=== PATIENT | female | born 1995 | race Hispanic/Latino ===

== ENCOUNTER 2019-11-05 22:20 | Emergency (ER) | payer SELFPAY ==
[2019-11-05] MEDS ORDERED: MORPHINE 4 MG/ML SYR ONE (22:54)
[2019-11-05] MEDS ORDERED: ONDANSETRON 4 MG/2 ML VIAL ONE (22:54)
[2019-11-05] MEDS ORDERED: NA CHLORIDE 0.9% 1,000 ML ONE (22:54)
[2019-11-05 23:18] LABS: Absolute Lymphocytes (CBC) 3.6 K/uL (0.7-4.9); Basophils % 0.3 % (0-1.3); Hematocrit 39.6 % (36.0-45.0); Lymphocytes % 31.1 % (15.3-44.8); MPV 8.6 fL (7.6-11.3); RBC Red Blood Cell Count 4.47 M/uL (3.86-4.86)
[2019-11-05 23:29] LABS: ALT/SGPT 49 U/L (12-78); AST/SGOT 26 U/L (15-37); Albumin 4.3 g/dL (3.4-5.0); Alkaline Phosphatase 74 U/L (45-117); BUN Blood Urea Nitrogen 12 mg/dL (7-18); Bicarbonate 24 mmol/L (21-32); Bilirubin Direct < 0.1 mg/dL (0-0.2); Bilirubin Total 0.2 mg/dL (0.2-1.0); Glucose Level 159 mg/dL (74-106); Lipase 74 U/L (73-393); Potassium 3.3 mmol/L (3.5-5.1); Protein, Total 8.4 g/dL (6.4-8.2); Sodium Level 138 mmol/L (136-145)
[2019-11-05 23:30] LABS: Calcium Oxalate Crystals- Ur FEW (NONE SEEN); Urine Culture Reflex Order REFLEXED
[2019-11-05 23:31] LABS: Urine Bacteria 20-50 /HPF (<20); Urine RBC <5 /HPF (NONE SEEN)
[2019-11-05] MEDS ORDERED: FENTANYL CITR 100 MCG/2 ML ONE (23:38)
[2019-11-05] MEDS ORDERED: KETOROLAC 30 MG/ML INJ ONE (23:48)
[2019-11-06 00:18] LABS: Urine Blood 1+ (NEG); Urine Glucose NEGATIVE (NEG); Urine Protein 2+ (NEG); Urine Specific Gravity >1.030 (1.005-1.030); Urine pH 5.5 (5.0-7.0)
--- NOTE | 2019-11-06 01:05 | ER ---
Nurse's Notes [facility] Name: Kori Ludwig Age: 24 yrs Sex: Female : 1995 Arrival Date: 11/05/2019 Time: 22:21 Bed 5 Private MD: Diagnosis: Other ovarian cysts;Calculus of kidney;Urinary tract infection, site not specified Presentation: 11/04 22:30 Chief complaint: Patient states: back pain started yesterday continuous, on and off rr5 stabbing pain. nausea and vomiting started 3 days ago. no trauma,no trouble peeing. 22:30 Coronavirus screen: Proceed with normal triage. Ebola Screen: Patient negative for rr5 fever greater than or equal to 101.5 degrees Fahrenheit, and additional compatible Ebola Virus Disease symptoms Patient denies exposure to infectious person. Patient denies travel to an Ebola-affected area in the 21 days before illness onset. Initial Sepsis Screen: Does the patient meet any 2 criteria? HR > 90 bpm. Yes Does the patient have a suspected source of infection? No. Patient's initial sepsis screen is negative. Risk Assessment: Do you want to hurt yourself or someone else? Patient reports no desire to harm self or others. Onset of symptoms was November 04, 2019. Care prior to arrival: Medication(s) given: Flomax, ciprofloxacin, naproxen. 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 - Social history:: Smoking status: unknown Patient/guardian denies using alcohol, street drugs. Screenin:38 Abuse screen: Denies threats or abuse. Denies injuries from another. Nutritional rr5 screening: No deficits noted. Tuberculosis screening: No symptoms or risk factors identified. Fall Risk IV access (20 points). Total Reynoso Fall Scale indicates No Risk (0-24 pts). Assessment: 22:30 General: Appears in no apparent distress. uncomfortable, ill, Behavior is calm, rr5 cooperative, appropriate for age. 22:30 Pain: Complains of pain in left mid back and right mid back Pain radiates to left lower rr5 quadrant Pain currently is 8 out of 10 on a pain scale. Quality of pain is described as stabbing, Pain began gradually, 1 day ago. Is intermittent. Neuro: Level of Consciousness is awake, alert, obeys commands, Oriented to person, place, time, situation. Cardiovascular: Capillary refill < 3 seconds Patient's skin is warm and dry. Respiratory: Airway is patent Respiratory effort is even, unlabored, Respiratory pattern is regular, symmetrical. GI: Abdomen is round non-distended, Reports lower abdominal pain, nausea, vomiting. : Urine is clear, Reports pain in bilateral flank(s), Denies burning with urination. EENT: No signs and/or symptoms were reported regarding the EENT system. Derm: Skin is intact, is healthy with good turgor, Skin temperature is warm. Musculoskeletal: Circulation, motion, and sensation intact. Capillary refill < 3 seconds. 23:30 Reassessment: Patient appears in no apparent distress at this time. Patient is alert, rr5 oriented x 3, equal unlabored respirations, skin warm/dry/pink. ED provider aware with order made and carried out. Patient states symptoms have not improved. 23:30 Pain: Pain currently is 10 out of 10 on a pain scale. rr5 11/05 00:30 Reassessment: Patient appears in no apparent distress at this time. Patient is alert, rr5 oriented x 3, equal unlabored respirations, skin warm/dry/pink. Patient states symptoms have improved. Pain: Pain currently is 6 out of 10 on a pain scale. 00:50 Reassessment: Patient appears in no apparent distress at this time. Patient is alert, rr5 oriented x 3, equal unlabored respirations, skin warm/dry/pink. ED provider reassess the patient, explained the results and ordered for discharge. 01:21 Reassessment: Patient appears in no apparent distress at this time. Patient is alert, rr5 oriented x 3, equal unlabored respirations, skin warm/dry/pink. discharge instruction given and explained without complaints made assisted going to her car and family member. Vital Signs: 11/04 22:30 BP 182 / 102; Pulse 111; Resp 20; Temp 99.1; Pulse Ox 100% ; Weight 104.33 kg; Height 5 rr5 ft. 3 in. (160.02 cm); Pain 8/10; 23:30 BP 141 / 74; Pulse 105; Resp 22; Pulse Ox 99% ; Pain 10/10; rr5 11/05 00:30 BP 157 / 78; Pulse 96; Resp 19; Pulse Ox 100% ; rr5 01:20 BP 141 / 70; Pulse 89; Resp 18; Pulse Ox 98% ; Pain 6/10; rr5 11/04 22:30 Body Mass Index 40.74 (104.33 kg, 160.02 cm) rr5 ED Course: 11/04 22:21 Patient arrived in ED. ag3 22:25 Albino Sagastume, RN is Primary Nurse. rr5 22:25 Carlos De Dios NP is PHCP. pm1 22:25 Coy Best MD is Attending Physician. pm1 22:30 Arm band placed on right wrist. rr5 22:35 Patient has correct armband on for positive identification. Bed in low position. Call rr5 light in reach. Pulse ox on. NIBP on. 22:36 Radiology exam delayed due to test not completed at this time. nj 22:37 Triage completed. rr5 22:45 Urine collected: clean catch specimen, clear. rr5 22:50 Inserted saline lock: 20 gauge in right antecubital area, using aseptic technique. ds4 Blood collected. 22:57 Basic Metabolic Panel Sent. ds4 22:57 CBC with Diff Sent. ds4 22:57 Creatinine for Radiology Sent. ds4 22:57 Hepatic Function Sent. ds4 22:57 Lipase Sent. ds4 23:41 CT Stone Protocol In Process Unspecified. EDMS Administered Medications: 22:50 Drug: NS 0.9% 1000 ml Route: IV; Rate: 1000 ml; Site: right antecubital; rr5 11/05 00:00 Follow up: Response: No adverse reaction; IV Status: Completed infusion; IV Intake: rr5 1000ml 11/04 22:51 Drug: Zofran (Ondansetron) 4 mg Route: IVP; Site: right antecubital; rr5 23:40 Follow up: Response: No adverse reaction rr5 22:53 Drug: morphine 4 mg {Note: rass 0.} Route: IVP; Site: right antecubital; rr5 23:35 Follow up: Response: Pain is unchanged, physician notified; RASS: Alert and Calm (0) rr5 23:39 Drug: fentaNYL (PF) 50 mcg {Note: rass 0.} Route: IVP; Site: right antecubital; rr5 11/05 00:40 Follow up: Response: No adverse reaction; Pain is decreased; RASS: Alert and Calm (0) rr5 11/04 23:46 Drug: TORadol - Ketorolac 15 mg Route: IVP; Site: right antecubital; rr5 11/05 00:40 Follow up: Response: No adverse reaction; Pain is decreased rr5 Intake: 00:00 IV: 1000ml; Total: 1000ml. rr5 Outcome: 01:04 Discharge ordered by pm1 01:23 Patient left the ED. rr5 Signatures: Dispatcher [employer] EDMS Dany Clark ds4 Carlos De Dios, ELISA [employer] pm1 Kevin Cunha Alice ag3 Albino Sagastume, RN RN rr5
--- NOTE | 2019-11-06 01:05 | EDPHYS ---
Physician Documentation [facility] Name: Kori Ludwig Age: 24 yrs Sex: Female : 1995 Arrival Date: 11/05/2019 Time: 22:21 Bed 5 Private MD: ED Physician Coy Best HPI: 11/04 22:36 This 24 yrs old Female presents to ER via Ambulatory with complaints of Back pm1 Pain. 22:36 The patient presents with pain that is acute, with no known mechanism of injury. The pm1 symptoms are located in the left mid back and right mid back. Onset: The symptoms/episode began/occurred yesterday, Nausea and vomiting 3 days ago. Associated signs and symptoms: Pertinent positives: LLQ abdominal pain. Similar to prior kidney stones, Pertinent negatives: chest pain, dysuria, fever. Modifying factors: The patient symptoms are alleviated by nothing, the patient symptoms are aggravated by nothing. Severity of symptoms: in the emergency department the symptoms are actually worse, a " 8" out of "10". The patient has experienced a previous episode, similar to prior kidney stones. 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 Prescribed Flomax, Cipro, and Naprosyn. 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 - Social history:: Smoking status: unknown Patient/guardian denies using alcohol, street drugs. ROS: 22:36 Constitutional: Negative for fever, chills, and weight loss, Cardiovascular: Negative pm1 for chest pain, palpitations, and edema, Respiratory: Negative for shortness of breath, cough, wheezing, and pleuritic chest pain. 22:36 : Negative for injury, bleeding, discharge, and swelling, MS/Extremity: Negative for injury and deformity, Skin: Negative for injury, rash, and discoloration, Neuro: Negative for headache, weakness, numbness, tingling, and seizure. 22:36 Abdomen/GI: Positive for abdominal pain, nausea and vomiting, of the left lower quadrant, Negative for diarrhea, constipation. 22:36 Back: Positive for of the left mid back and right mid back, pain. Exam: 22:36 Constitutional: This is a well developed, well nourished patient who is awake, alert, pm1 and in no acute distress. Head/Face: Normocephalic, atraumatic. Chest/axilla: Normal chest wall appearance and motion. Nontender with no deformity. No lesions are appreciated. 22:36 Skin: Warm, dry with normal turgor. Normal color with no rashes, no lesions, and no evidence of cellulitis. MS/ Extremity: Pulses equal, no cyanosis. Neurovascular intact. Full, normal range of motion. 22:36 Cardiovascular: Exam negative for acute changes, Rate: normal, Rhythm: regular, Pulses: no pulse deficits are appreciated. 22:36 Respiratory: Exam negative for acute changes, respiratory distress, shortness of breath. 22:36 Abdomen/GI: Inspection: abdomen appears normal, Palpation: soft, in all quadrants, mild abdominal tenderness, in the left lower quadrant, mass, is not appreciated, rebound tenderness, is not appreciated. 22:36 Back: pain, that is mild, of the left mid back and right mid back, normal spinal alignment noted. 22:36 Neuro: Exam negative for acute changes, Orientation: is normal, Mentation: is normal, Motor: is normal, moves all fours, Gait: is steady, at a normal pace, without difficulty. Vital Signs: 22:30 BP 182 / 102; Pulse 111; Resp 20; Temp 99.1; Pulse Ox 100% ; Weight 104.33 kg; Height 5 rr5 ft. 3 in. (160.02 cm); Pain 8/10; 23:30 BP 141 / 74; Pulse 105; Resp 22; Pulse Ox 99% ; Pain 10/10; rr5 11/05 00:30 BP 157 / 78; Pulse 96; Resp 19; Pulse Ox 100% ; rr5 01:20 BP 141 / 70; Pulse 89; Resp 18; Pulse Ox 98% ; Pain 6/10; rr5 11/04 22:30 Body Mass Index 40.74 (104.33 kg, 160.02 cm) rr5 MDM: 11/04 22:25 Patient medically screened. pm1 22:50 Data reviewed: vital signs. Data interpreted: Pulse oximetry: on room air is 100 %. pm1 Interpretation: normal. 11/05 01:02 Counseling: I had a detailed discussion with the patient and/or guardian regarding: the pm1 historical points, exam findings, and any diagnostic results supporting the discharge/admit diagnosis, lab results, radiology results, the need for outpatient follow up, an OB/Gyne specialist, a urologist, Follow up pelvic U/S to evaluate ovarian cyst, to return to the emergency department if symptoms worsen or persist or if there are any questions or concerns that arise at home. 01:05 ED course: Patient with diagnosed with UTI by her PCP and was prescribed Cipro pm1 yesterday. She has only taken one dose of antibiotics. Pending urine culture so no antibiotic prescribed by me. Patient also offered narcotic pain prescription and she refused. She wants to use NSAIDs prescribed by PCP. 11/04 22:34 Order name: Basic Metabolic Panel; Complete Time: 23:45 pm1 11/04 22:34 Order name: CBC with Diff; Complete Time: 23:29 pm1 11/04 22:34 Order name: Creatinine for Radiology; Complete Time: 23:29 pm1 11/04 22:34 Order name: Hepatic Function; Complete Time: 23:45 pm1 11/04 22:34 Order name: Lipase; Complete Time: 23:45 pm1 11/04 22:45 Order name: Urine Microscopic Only; Complete Time: 23:45 rr5 11/04 22:34 Order name: CT Stone Protocol pm1 11/04 23:32 Order name: Urine Culture EDWY 11/04 23:51 Order name: Urine Dipstick--Ancillary (enter results); Complete Time: 00:24 ar5 11/04 23:51 Order name: Urine --Ancillary (enter results); Complete Time: 00:24 ar5 11/04 22:34 Order name: IV Saline Lock; Complete Time: 22:56 pm1 11/04 22:34 Order name: Labs collected and sent; Complete Time: 22:56 pm1 11/04 22:34 Order name: Urine Dipstick-Ancillary (obtain specimen); Complete Time: 22:45 pm1 11/04 22:34 Order name: Urine Test (obtain specimen); Complete Time: 22:45 pm1 Administered Medications: 11/04 22:50 Drug: NS 0.9% 1000 ml Route: IV; Rate: 1000 ml; Site: right antecubital; rr5 11/05 00:00 Follow up: Response: No adverse reaction; IV Status: Completed infusion; IV Intake: rr5 1000ml 11/04 22:51 Drug: Zofran (Ondansetron) 4 mg Route: IVP; Site: right antecubital; rr5 23:40 Follow up: Response: No adverse reaction rr5 22:53 Drug: morphine 4 mg {Note: rass 0.} Route: IVP; Site: right antecubital; rr5 23:35 Follow up: Response: Pain is unchanged, physician notified; RASS: Alert and Calm (0) rr5 23:39 Drug: fentaNYL (PF) 50 mcg {Note: rass 0.} Route: IVP; Site: right antecubital; rr5 11/05 00:40 Follow up: Response: No adverse reaction; Pain is decreased; RASS: Alert and Calm (0) rr5 11/04 23:46 Drug: TORadol - Ketorolac 15 mg Route: IVP; Site: right antecubital; rr5 11/05 00:40 Follow up: Response: No adverse reaction; Pain is decreased rr5 Disposition: 02:17 Co-signature as Attending Physician, Coy Best MD. rn Disposition: 11/06/19 01:04 Discharged to Home. Impression: Other ovarian cysts, Calculus of kidney, Urinary tract infection, site not specified. - Condition is Stable. - Discharge Instructions: Kidney Stones, Ovarian Cyst, Urinary Tract Infection, Adult. - Medication Reconciliation Form, Thank You Letter, Antibiotic Education, Prescription Opioid Use form. - Follow up: Emergency Department; When: As needed; Reason: Worsening of condition. Follow up: Private Physician; When: 2 - 3 days; Reason: Recheck today's complaints, Continuance of care, Re-evaluation by your physician. - Problem is new. - Symptoms have improved. - Notes: Continue taking the antibiotics and painmedications prescribed to youby your PCP. A urine culture is pending and the hospital will contact you if a change in antibiotics is required Signatures: Dispatcher [employer] EDMS Coy Best MD MD rn Marinas, Patrick, ELISA DISHWASHER PREPARER pm1 Albino Sagastume, RN RN rr5 Corrections: (The following items were deleted from the chart) 01:07 01:04 11/06/2019 01:04 Discharged to Home. Impression: Other ovarian cysts; Calculus of pm1 kidney. Condition is Stable. Forms are Medication Reconciliation Form, Thank You Letter, Antibiotic Education, Prescription Opioid Use. Follow up: Emergency Department; When: As needed; Reason: Worsening of condition. Follow up: Private Physician; When: 2 - 3 days; Reason: Recheck today's complaints, Continuance of care, Re-evaluation by your physician. Problem is new. Symptoms have improved. pm1 01:23 01:07 11/06/2019 01:04 Discharged to Home. Impression: Other ovarian cysts; Calculus of rr5 kidney; Urinary tract infection, site not specified. Condition is Stable. Discharge Instructions: Kidney Stones, Ovarian Cyst. Forms are Medication Reconciliation Form, Thank You Letter, Antibiotic Education, Prescription Opioid Use. Follow up: Emergency Department; When: As needed; Reason: Worsening of condition. Follow up: Private Physician; When: 2 - 3 days; Reason: Recheck today's complaints, Continuance of care, Re-evaluation by your physician. Problem is new. Symptoms have improved. pm1
[2019-11-06 01:38] VITALS: TEMP 99.1
[2019-11-06 01:48] VITALS: BP 141/70; O2SAT 98
--- NOTE | 2019-11-06 11:51 | RAD REPORT ---
EXAM DESCRIPTION: Stone Protocol CLINICAL HISTORY: 24 years Female FLANK PAIN COMPARISON: None. TECHNIQUE: Contiguous axial images obtained through the abdomen and pelvis without IV contrast. Refo rmatted images obtained. This exam was performed according to our department optimization program which includes automated exp osure control, adjustment of the mA and/or kv according to patient size and/or use of iterative recon struction technique. FINDINGS: The lung bases are clear. The liver is enlarged measuring 26 cm in length. There is mild fatty replacement in the liver. The spleen and pancreas appear unremarkable. No adrenal masses. There are small bilateral nonobstructing renal calculi. No hydronephrosis or definite ureteral calcul i. The gallbladder is visualized. No aneurysmal dilatation of the aorta. No bowel obstruction. The appendix appears unremarkable. No significant free pelvic fluid. There is a probable 3.3 cm left ovarian cyst. Posterior disc/disc osteophyte complexes at L4-5 and L5-S1. IMPRESSION: The liver is markedly enlarged. There are bilateral nonobstructing renal calculi. No hydronephrosis or ureteral calculi. There is a probable 3.3 cm indeterminate ovarian cyst. Recommend prompt follow-up with pelvic US. Reference: J Am Victorina Radiol 2013;10:[id number] Electronically signed by: Elan Beck MD 11/06/2019 12:14 AM CDT Due to temporary technical issues with the PACS/Fluency reporting system, reports are being signed by the in house radiologist as a courtesy to ensure prompt reporting. The interpreting radiologist is f ully responsible for the content of the report.
== END 2019-11-06 01:23 | disposition home or self-care (01) ==
LOC: ER 22:20
DX: N83.299 Other ovarian cyst, unspecified side (principal); N39.0 Urinary tract infection, site not specified; N20.0 Calculus of kidney; Z87.442 Personal history of urinary calculi; Z87.898 Personal history of other specified conditions
CPT/HCPCS: 36415; 74176; 76377; 80048; 80076; 81003; 81015; 81025; 83690; 85025; 87086; 87088; 96361; 96374; 96375; 99284; J2405; J3010; J7030

== ENCOUNTER 2021-02-22 06:30 | Emergency (ER) | payer SELFPAY ==
[2021-02-22 08:10] LABS: Absolute Lymphocytes (CBC) 2.1 K/uL (0.7-4.9); Basophils % 0.4 % (0-1.3); Hematocrit 36.5 % (36.0-45.0); Lymphocytes % 22.3 % (15.3-44.8); MPV 7.9 fL (7.6-11.3); RBC Red Blood Cell Count 4.19 M/uL (3.86-4.86)
[2021-02-22] MEDS ORDERED: ONDANSETRON 4 MG/2 ML VIAL ONE (08:20)
[2021-02-22] MEDS ORDERED: MORPHINE 4 MG/ML SYR ONE (08:20)
--- NOTE | 2021-02-22 08:24 | RAD REPORT ---
EXAM DESCRIPTION: CT - Stone Protocol - 02/22/2021 7:46 am CLINICAL HISTORY: Flank pain. right sided abd pain, hx of stones COMPARISON: Stone Protocol dated 11/05/2019 TECHNIQUE: Axial images were obtained without oral or IV contrast. Lack of contrast limits solid org an and vascular assessment. The [id number] spans the entirety of the system partially obscuring uppermost abdomen and lung bases. Coronal reformatted images were obtained and reviewed. All CT scans are performed using dose optimization technique as appropriate and may include automated exposure control or mA/KV adjustment according to patient size. FINDINGS: The lower lung catherine are clear. Imaged portions of the liver and spleen show no suspicious findings on non-contrast imaging. The panc reas and adrenal glands are normal. No pathologic lymphadenopathy in the abdomen or pelvis. 3 mm stone is present proximal right ureter with mild right hydronephrosis. Additional small caliceal stones in both kidneys noted. No bowel obstruction, free air, free fluid or abscess. Normal appendix noted. No significant bony abnormality. IMPRESSION: 3 mm stone proximal right ureter resulting in mild right hydronephrosis.
[2021-02-22 08:31] LABS: ALT/SGPT 28 U/L (12-78); AST/SGOT 15 U/L (15-37); Albumin 3.6 g/dL (3.4-5.0); Alkaline Phosphatase 73 U/L (45-117); BUN Blood Urea Nitrogen 6 mg/dL (7-18); Bicarbonate 24 mmol/L (21-32); Bilirubin Direct < 0.1 mg/dL (0-0.2); Bilirubin Total 0.2 mg/dL (0.2-1.0); Glucose Level 215 mg/dL (74-106); Potassium 3.8 mmol/L (3.5-5.1); Protein, Total 7.3 g/dL (6.4-8.2); Sodium Level 137 mmol/L (136-145)
[2021-02-22] MEDS ORDERED: KETOROLAC 30 MG/ML INJ ONE (09:16)
[2021-02-22] MEDS ORDERED: TAMSULOSIN 0.4 MG SR CAP ONE (09:16)
[2021-02-22] MEDS ORDERED: MAGNESIUM SULFATE 1 gm IVPB 1 GM/100 ML BAG IV ONE (09:26)
--- NOTE | 2021-02-22 10:13 | ER ---
Nurse's Notes [facility] Name: Kori Ludwig Age: 25 yrs Sex: Female : 1995 Arrival Date: 02/22/2021 Time: 06:32 Bed 15 Private MD: Diagnosis: Calculus of ureter-Mild hydronephrosis Presentation: 02/22 07:09 Chief complaint: Patient states: RLQ abd pain with N/V since 6 am. Currently being ll1 treated for UTI, still has some dysuria. No fever. Coronavirus screen: Client denies travel out of the [place] in the last 14 days. At this time, the client does not indicate any symptoms associated with coronavirus-19. Ebola Screen: Patient denies travel to an Ebola-affected area in the 21 days before illness onset. Initial Sepsis Screen: Does the patient meet any 2 criteria? HR > 90 bpm. No. Patient's initial sepsis screen is negative. Does the patient have a suspected source of infection? Yes: Acute abdominal pain. Risk Assessment: Do you want to hurt yourself or someone else? Patient reports no desire to harm self or others. Onset of symptoms was February 22, 2021. 07:09 Method Of Arrival: Ambulatory ll1 07:09 Acuity: [place] 3 ll1 Historical: - Allergies: 07:11 No Known Allergies; ll1 - PMHx: 07:11 Kidney stones; ll1 - PSHx: 07:11 None; ll1 - Immunization history:: Client reports having NOT received the Covid vaccine. Flu vaccine status is unknown. - Social history:: Smoking status: Patient denies any tobacco usage or history of. - Family history:: not pertinent. - Hospitalizations: : No recent hospitalization is reported. Screenin:36 Abuse screen: Denies threats or abuse. Nutritional screening: No deficits noted. jd3 Tuberculosis screening: No symptoms or risk factors identified. Fall Risk Ambulatory Aid- None/Bed Rest/Nurse Assist (0 pts). Gait- Normal/Bed Rest/Wheelchair (0 pts) Mental Status- Oriented to own ability (0 pts). Total Reynoso Fall Scale indicates No Risk (0-24 pts). Assessment: 08:33 General: Appears in no apparent distress. comfortable, Behavior is calm, cooperative, jd3 appropriate for age. Pain: Complains of pain in right lower quadrant Quality of pain is described as sharp, tender. Neuro: Level of Consciousness is awake, alert, obeys commands, Oriented to person, place, time, situation. Cardiovascular: Denies chest pain, Capillary refill < 3 seconds Patient's skin is warm and dry. Respiratory: Airway is patent Respiratory effort is even, unlabored, Respiratory pattern is regular, symmetrical, Denies cough, shortness of breath. GI: Abdomen is round non-distended, Abd is soft and non tender X 4 quads. Reports lower abdominal pain, nausea, vomiting. : No signs and/or symptoms were reported regarding the genitourinary system. EENT: No signs and/or symptoms were reported regarding the EENT system. Derm: Skin is intact, Skin is dry, Skin is normal, Skin temperature is warm. Musculoskeletal: Circulation, motion, and sensation intact. Range of motion: intact in all extremities. 09:49 Reassessment: Patient appears in no apparent distress at this time. No changes from jd3 previously documented assessment. Patient and/or family updated on plan of care and expected duration. Pain level reassessed. Patient is alert, oriented x 3, equal unlabored respirations, skin warm/dry/pink. 10:24 Reassessment: Patient appears in no apparent distress at this time. Patient and/or jd3 family updated on plan of care and expected duration. Pain level reassessed. Patient is alert, oriented x 3, equal unlabored respirations, skin warm/dry/pink. Patient states feeling better. Vital Signs: 07:09 BP 157 / 94; Pulse 94; Resp 17; Temp 98.6; Pulse Ox 97% ; Weight 102.51 kg; Height 5 ll1 ft. 3 in. (160.02 cm); Pain 8/10; 08:35 BP 139 / 59; Pulse 98; Resp 18 S; Pulse Ox 99% on R/A; jd3 09:49 Pulse 95; Resp 17 S; Pulse Ox 99% on R/A; jd3 07:09 Body Mass Index 40.03 (102.51 kg, 160.02 cm) ll1 ED Course: 06:32 Patient arrived in ED. wm 06:49 [facility]C [facility] kb 06:49 Shan Oliveira MD is Attending Physician. kb 07:06 Attending Physician role handed off by Shan Oliveira MD rn 07:06 Coy Best MD is Attending Physician. rn 07:11 Triage completed. ll1 07:11 Arm band placed on Patient placed in an exam room, on a stretcher. ll1 07:46 CT Stone Protocol In Process Unspecified. EDMS 08:03 Babak Jean Baptiste RN is Primary Nurse. jd3 08:03 Inserted saline lock: 20 gauge in right antecubital area, using aseptic technique. jd3 Blood collected. 08:36 Patient has correct armband on for positive identification. Bed in low position. Call jd3 light in reach. Side rails up X 1. Adult w/ patient. environmental monitoring specialist on. Pulse ox on. NIBP on. 10:24 No provider procedures requiring assistance completed. IV discontinued, intact, jd3 bleeding controlled, No redness/swelling at site. Pressure dressing applied. Administered Medications: 08:03 Drug: morphine 4 mg Route: IVP; Site: right antecubital; jd3 09:00 Follow up: Response: No adverse reaction; RASS: Alert and Calm (0) jd3 08:03 Drug: Zofran (Ondansetron) 4 mg Route: IVP; Site: right antecubital; jd3 09:00 Follow up: Response: No adverse reaction jd3 09:02 Drug: Ketorolac 15 mg Route: IVP; Site: right antecubital; jd3 10:00 Follow up: Response: No adverse reaction jd3 09:02 Drug: Flomax (tamsulosin) 0.4 mg Route: PO; jd3 10:00 Follow up: Response: No adverse reaction jd3 09:02 Drug: Magnesium Sulfate 1 grams Route: IVPB; Infused Over: 1 hrs; Site: right jd3 antecubital; 10:00 Follow up: Response: No adverse reaction; IV Status: Completed infusion jd3 Outcome: 10:13 Discharge ordered by . rn 10:24 Discharged to home ambulatory, with family. jd3 10:24 Condition: stable 10:24 Discharge instructions given to patient, Instructed on discharge instructions, follow up and referral plans. medication usage, Demonstrated understanding of instructions, follow-up care, medications, Prescriptions given X 2. 10:25 Patient left the ED. jd3 Signatures: Dispatcher [employer] EDAK Edith Chauhan, PAULA-C INSPECTOR BICYCLE-Ckb Coy Best MD MD rn Ita, Babak, RN RN jd3 Delores Mckinney RN RN ll1 Radha Marc
--- NOTE | 2021-02-22 10:14 | EDPHYS ---
Physician Documentation [facility] Name: Kori Ludwig Age: 25 yrs Sex: Female : 1995 Arrival Date: 02/22/2021 Time: 06:32 Bed 15 Private MD: ED Physician Coy Best HPI: 02/22 07:28 This 25 yrs old Female presents to ER via Ambulatory with complaints of rn Abdominal Pain - RIGHT SIDE. 07:28 The patient presents with abdominal pain right lower quadrant. Onset: The rn symptoms/episode began/occurred this morning. The symptoms do not radiate. Associated signs and symptoms: Pertinent positives: dysuria, nausea, Pertinent negatives: fever, shortness of breath, vaginal discharge, vomiting, vomiting blood. The symptoms are described as sharp. Modifying factors: The symptoms are alleviated by nothing, the symptoms are aggravated by movement, touching the area. Severity of pain: At its worst the pain was moderate in the emergency department the pain has improved. The patient has experienced similar episodes in the past. The patient has not recently seen a physician. Patient reports right-sided abdominal pain that began at around 6 AM this morning. [place] fine when going to bed last night. No fever, no chills, no chest pain. Feels slightly different from previous kidney stones. Pain is constant and worse with movement and touching area. On antibiotics for UTI currently.. Historical: - Allergies: 07:11 No Known Allergies; ll1 - PMHx: 07:11 Kidney stones; ll1 - PSHx: 07:11 None; ll1 - Immunization history:: Client reports having NOT received the Covid vaccine. Flu vaccine status is unknown. - Social history:: Smoking status: Patient denies any tobacco usage or history of. - Family history:: not pertinent. - Hospitalizations: : No recent hospitalization is reported. ROS: 07:28 Constitutional: Negative for fever, chills, and weight loss, Eyes: Negative for injury, rn pain, redness, and discharge, ENT: Negative for injury, pain, and discharge, Neck: Negative for injury, pain, and swelling, Cardiovascular: Negative for chest pain, palpitations, and edema, Respiratory: Negative for shortness of breath, cough, wheezing, and pleuritic chest pain, Abdomen/GI: Positive for right-sided abdominal pain, and nausea. Back: Negative for injury and pain, : Positive for dysuria negative for bleeding MS/Extremity: Negative for injury and deformity, Skin: Negative for injury, rash, and discoloration, Neuro: Negative for headache, weakness, numbness, tingling, and seizure. 07:28 All other systems are negative. Exam: 07:28 Constitutional: Overweight female no acute distress. Head/Face: Normocephalic, rn atraumatic. Eyes: Periorbital areas with no swelling, redness, or edema. Cardiovascular: Regular rate and rhythm. No pulse deficits. Respiratory: No increased work of breathing, no retractions or nasal flaring. Abdomen/GI: Soft, mild right lower and right upper abdominal tenderness, no peritoneal signs, no distention. Back: No spinal tenderness. Skin: Warm, dry with normal turgor. Normal color with no rashes, no lesions, and no evidence of cellulitis. MS/ Extremity: Pulses equal, no cyanosis. Neurovascular intact. Full, normal range of motion. Equal circumference. Neuro: Awake and alert, GCS 15 Vital Signs: 07:09 BP 157 / 94; Pulse 94; Resp 17; Temp 98.6; Pulse Ox 97% ; Weight 102.51 kg; Height 5 ll1 ft. 3 in. (160.02 cm); Pain 8/10; 08:35 BP 139 / 59; Pulse 98; Resp 18 S; Pulse Ox 99% on R/A; jd3 09:49 Pulse 95; Resp 17 S; Pulse Ox 99% on R/A; jd3 07:09 Body Mass Index 40.03 (102.51 kg, 160.02 cm) ll1 MDM: 07:05 Patient medically screened. kb 10:11 Differential diagnosis: appendicitis, diverticulitis, non-specific abd pain, rn Ureterolithiasis, urinary tract infection. Data reviewed: vital signs, nurses notes, lab test result(s), radiologic studies, CT scan, and as a result, I will discharge patient. Counseling: I had a detailed discussion with the patient and/or guardian regarding: the historical points, exam findings, and any diagnostic results supporting the discharge/admit diagnosis, lab results, radiology results, the need for outpatient follow up, to return to the emergency department if symptoms worsen or persist or if there are any questions or concerns that arise at home. Response to treatment: the patient's symptoms have markedly improved after treatment, and as a result, I will discharge patient. Special discussion: I discussed with the patient/guardian in detail that at this point there is no indication for admission to the hospital. It is understood, however, that if the symptoms persist or worsen the patient needs to return immediately for re-evaluation. ED course: Patient markedly improved, small 3 mm stone, high likelihood of passing without intervention, will DC home with pain medication and as needed Zofran. Patient states has Flomax at home.. 02/22 07:20 Order name: CT Stone Protocol; Complete Time: 08:33 rn 02/22 07:20 Order name: CBC with Diff; Complete Time: : rn 02/22 07:20 Order name: Basic Metabolic Panel; Complete Time: : rn 02/22 07:20 Order name: LFT's; Complete Time: 08: rn 02/22 07:08 Order name: Urine Test (obtain specimen); Complete Time: 08:03 rn 02/22 07:20 Order name: IV Start; Complete Time: 08:03 rn Administered Medications: 08:03 Drug: morphine 4 mg Route: IVP; Site: right antecubital; jd3 09:00 Follow up: Response: No adverse reaction; RASS: Alert and Calm (0) jd3 08:03 Drug: Zofran (Ondansetron) 4 mg Route: IVP; Site: right antecubital; jd3 09:00 Follow up: Response: No adverse reaction jd3 09:02 Drug: Ketorolac 15 mg Route: IVP; Site: right antecubital; jd3 10:00 Follow up: Response: No adverse reaction jd3 09:02 Drug: Flomax (tamsulosin) 0.4 mg Route: PO; jd3 10:00 Follow up: Response: No adverse reaction jd3 09:02 Drug: Magnesium Sulfate 1 grams Route: IVPB; Infused Over: 1 hrs; Site: right jd3 antecubital; 10:00 Follow up: Response: No adverse reaction; IV Status: Completed infusion jd3 Disposition Summary: 02/22/21 10:13 Discharge Ordered Location: Home rn Problem: new rn Symptoms: have improved rn Condition: Stable rn Diagnosis - Calculus of ureter - Mild hydronephrosis rn Followup: rn - With: Private Physician - When: As needed - Reason: Recheck today's complaints, Re-evaluation by your physician Discharge Instructions: - Discharge Summary Sheet rn - Kidney Stones rn - Renal Colic rn - Dietary Guidelines to Help Prevent Kidney Stones rn Forms: - Medication Reconciliation Form rn - Thank You Letter rn - Antibiotic rn icu - Prescription Opioid Use rn Prescriptions: - ondansetron 4 mg Oral tablet,disintegrating - take 1 tablet by ORAL route every 8 hours As needed; 15 tablet; Refills: 0, rn Product Selection Permitted - Ibuprofen 800 mg Oral Tablet - take 1 tablet by ORAL route every 12 hours As needed take with food; 20 tablet; rn Refills: 0, Product Selection Permitted Signatures: Dispatcher [employer] EDEdith Gardner, YUVALC EXTERMINATION SUPERVISOR-Coy Treviño MD MD rn Davies, Jonathon, RN RN jd3 Delores Mckinney RN RN ll1
[2021-02-22 10:33] VITALS: TEMP 98.6
[2021-02-22 10:34] VITALS: BP 139/59; O2SAT 99
== END 2021-02-22 10:25 | disposition home or self-care (01) ==
LOC: ER 06:30
DX: N13.2 Hydronephrosis with renal and ureteral calculous obstruction (principal); Z87.442 Personal history of urinary calculi
CPT/HCPCS: 36415; 74176; 76377; 80048; 80076; 85025; 96365; 96375; 99284; J2405; J3475

== ENCOUNTER 2023-11-21 02:18 | Emergency (ER) | payer OTHER, SELFPAY ==
--- OUTSIDE RECORDS SUMMARY | 2023-11-21 02:20 | XMS REPORT | Continuity of Care Document ---
Author Name Unknown Address [address] [facility] [address] [place] [address] [facility] thconnect Address [address] [facility] [place] [address] Care Team Providers Care Advisory Application Developer Name Role Phone Unavailable Unavailable Unavailable Encounters Start Date/Time End Date/Time Encounter Type Admission Type Attending [facility] Care Facility Care Department Encounter ID Source 2023-05-27 08:46:32 2023-05-27 08:46:[address] [facility] [id number] [place] Crews 2023-03-21 14:05:48 2023-03-21 14:05:48 Outpatient [facility] [id number] [place] Crews 2023-02-09 07:22:54 2023-02-09 07:22:54 Outpatient [facility] [id number] [place] Crews 2023-02-01 11:36:27 2023-02-01 11:36:[address] [facility] SFA [id number] [place] Crews 2022-11-13 08:49:51 2022-11-13 08:49:[address] [facility] SFA [id number] [place] Crews 2022-11-11 08:17:45 2022-11-11 08:17:45 Outpatient [facility] [id number] [place]on Crews Results Test Description Test Time Test Comments Results Result Co mments Source JOVANNA JETER [id number] 13:16:06* Test Item Value Reference Range Interpretation Comme nts JOVANNA JETER IgG (test code = 30932) 45.3 AU/ML SEE BELOW INTERPRETATION U NITS RANGE ----- ----- NEGATIVE AU/ML <13.5 EQUIVOCAL AU/ML 13.5-16.4 NOTE: CONSIDER RETESTING IN A CLINICALLY SUITABLE PERIOD OF TIME, NO SOONER THAN 1-2 WEEKS. POSITIVE AU/ML >=16.5 VARICELLA ZOSTER [id number] 13:16:06* Test Item Value Reference Range Interpretation Comme [facility] VARICELLA ZOSTER IgG (test code = 85582) 92 INDEX SEE BELOW L INTERPRETATI ON VZV IgG NEGATIVE . . . . . . . . . . . . INDEX <135 EQUIVOCAL. . . . . . . . . . . . INDEX 135-164 NOTE: CONSIDER RETESTING IN A CLINICALLY SUITABLE PERIOD OF TIME, NO SOONER THAN 1-2 WEEKS. POSITIVE . . . . . . . . . . . . INDEX >=165 HEPATITIS B SURFACE [id number] 04:26:12* Test Item Value Reference Range Interpretation Comme [facility] HEPATITIS B SURFACE AB (test code = 2737) NON-REACTIVE NON-REACTIVE HEPATITIS A TOTAL AB REFLEX TO [id number] 04:26:12* Test Item Value Reference Range Interpretation Comme [facility] HEPATITIS A TOTAL AB (test c ode = 2725) REACTIVE NON-REACTIVE A HEPATITIS A [id number] 04:26:12* Test Item Value Reference Range Interpretation Comme [facility] HEPATITIS A IgM (test code = 2728) NON-REACTIVE NON-REACTIVE [facility] has i mportant pathology staff changes effective 09/22/2022. New pathology staff will provide uninterrupted, excellent patient care and clinical consultation. See URL: [email or web address]. UNLESS OTHERWISE INDICATED, ALL TESTING PERFORMED AT [facility] [address] [place] [id number] PARKING METER COLLECTOR: JOYCE THOMAS M.D. CLIA NUMBER [id number] [facility] [place]. [id number] RUBELLA ANTIBODY [id number] 04:26:12* Test Item Value Reference Range Interpretation Comme [facility] RUBELLA ANTIBODY SCREEN (test code = 4600) 320 IU/ML SEE BELOW RUBELLA IgG INTERP (test code = 79790) REACTIVE REACTIVE INTERPRETATI ON UNITS RANGE NON-REACTIVE/NON-IMMUNE IU/ML <10 REACTIVE/IMMUNE IU/ML >=10
[2023-11-21] MEDS ORDERED: METOCLOPRAMIDE 10 MG/2mL INJ ONE (03:38)
[2023-11-21] MEDS ORDERED: DICYCLOMINE HCL 20 MG/2 ML AMP IM ONE (03:38)
[2023-11-21] MEDS ORDERED: KETOROLAC 30 MG/ML INJ ONE (03:38)
[2023-11-21] MEDS ORDERED: ONDANSETRON 4 MG/2 ML VIAL ONE (03:38)
[2023-11-21] MEDS ORDERED: NA CHLORIDE 0.9% 1,000 ML ONE (03:39)
[2023-11-21] MEDS ORDERED: MORPHINE 4 MG/ML SYR ONE (03:39)
[2023-11-21 04:30] LABS: Absolute Eosinophils 0.1 K/uL (0-0.5); Absolute Lymphocytes (CBC) 2.9 K/uL (0.7-4.9); Absolute Monocytes 0.6 K/uL (0.1-1.3); Absolute Neutrophil 5.2 K/uL (1.8-8.0); Basophils % 0.2 % (0-1.3); Eosinophils % 1.6 % (0-4.4); Hematocrit 37.8 % (36.0-45.0); Hemoglobin 12.7 g/dL (12.0-15.0); Lymphocytes % 32.6 % (15.3-44.8); MCH 29.7 pg (27.0-35.0); MCHC 33.7 g/dL (32.0-36.0); MCV 88.2 fL (80-100); MPV 8.4 fL (7.6-11.3); Monocytes % 6.9 % (3.3-12.3); Neutrophils % 58.7 % (41.7-73.7); Platelets 456 thou/uL (152-406); RBC Red Blood Cell Count 4.28 M/uL (3.86-4.86); Red Cell Distribution Width 12.9 % (12.1-15.2)
[2023-11-21 04:35] LABS: Specific Gravity 1.021 (1.005-1.030); Sqamous Epithelial <5 /HPF (None Seen); Urine Bacteria <20 /HPF (<20); Urine Bilirubin NEGATIVE (Negative); Urine Blood 1+ (Negative); Urine Clarity Turbid (Clear); Urine Color Light-Yellow (Yellow); Urine Culture Reflex Order NOT NEEDED; Urine Glucose NEGATIVE (Negative); Urine Ketones NEGATIVE (Negative); Urine Microscopic Reflex YN ORDER UMIC; Urine Mucus Slight /HPF (None Seen); Urine Nitrite NEGATIVE (Negative); Urine Protein NEGATIVE (Negative); Urine RBC <5 /HPF (None Seen); Urine Urobilinogen Normal (Normal); Urine WBC <5 /HPF (<5); Urine pH 5.5 (5.0-7.0)
[2023-11-21 04:36] LABS: Specific Gravity 1.021 (1.005-1.030)
[2023-11-21 04:39] LABS: Albumin 3.6 g/dL (3.4-5.0); Albumin/Globulin Ratio 0.9 (1.1-1.8); Anion Gap 7.7 mEq/L (5.0-15.0); Bilirubin Total 0.3 mg/dL (0.2-1.0); Globulin 3.9 g/dL (2.3-3.5); Potassium 3.7 mEq/L (3.5-5.1); Protein, Total 7.5 g/dL (6.4-8.2)
--- NOTE | 2023-11-21 06:25 | ER ---
Nurse's Notes [facility] Name: Kori Ludwig Age: 28 yrs Sex: Female : 1995 Arrival Date: 11/21/2023 Time: 02:18 Bed 7 Private MD: Diagnosis: Type 2 diabetes mellitus with hyperglycemia;Cholelithiasis without cholecystitis, hepatomegaly, left ovarian cyst, history of prediabetes, hyperglycemia, type 2 diabetes Presentation: 11/20 02:57 Chief complaint: Patient states: RUQ abdominal pain that radiates to her back onset cm10 tonight at 0100. Pt states that the pain woke her up from her sleep. Pt reports that she is having some nausea and describes the pain as a burning pain. Coronavirus screen: Client denies travel out of the [place] in the last 14 days. At this time, the client does not indicate any symptoms associated with coronavirus-19. Ebola Screen: Patient denies travel to an Ebola-affected area in the 21 days before illness onset. No symptoms or risks identified at this time. Initial Sepsis Screen: Does the patient meet any 2 criteria? No. Patient's initial sepsis screen is negative. Does the patient have a suspected source of infection? No. Patient's initial sepsis screen is negative. Risk Assessment: Do you want to hurt yourself or someone else? Patient reports no desire to harm self or others. Onset of symptoms was November 21, 2023. 02:57 Method Of Arrival: Ambulatory cm10 02:57 Acuity: TRISTON 3 cm10 Triage Assessment: 03:00 General: Appears in no apparent distress. comfortable, Behavior is calm, cooperative. cm10 Pain: Complains of pain in right upper quadrant Pain radiates to back Pain currently is 8 out of 10 on a pain scale. Quality of pain is described as burning, Pain began 2 hours ago. Is continuous. Neuro: No deficits noted. Level of Consciousness is awake, alert, obeys commands, Oriented to person, place, time, situation, Appropriate for age. Historical: - Allergies: 02:59 No Known Allergies; cm10 - Home Meds: 02:59 None [Active]; cm10 - PMHx: 02:59 Kidney stones; cm10 - PSHx: 02:59 None; cm10 - Immunization history:: Adult Immunizations up to date. - Infectious Disease History:: Denies. - Social history:: Smoking status: Patient denies any tobacco usage or history of. Patient/guardian denies using alcohol, street drugs. - Family history:: not pertinent. Screenin:05 Abuse screen: Denies threats or abuse. Denies injuries from another. jw7 03:05 [facility] ED Fall Risk Assessment (Adult) History of falling in the last 3 months, jw7 including since admission No falls in past 3 months (0 pts) Confusion or Disorientation No (0 pts) Intoxicated or Sedated No (0 pts) Impaired Gait No (0 pts) Mobility Assist Device Used No (0 pt) Altered Elimination No (0 pt) Score/Fall Risk Level 0 - 2 = Low Risk Oriented to surroundings, Maintained a safe environment, Educated pt \T\ family on fall prevention, incl call for assistance when getting out of bed. Nutritional screening: No deficits noted. Tuberculosis screening: No symptoms or risk factors identified. Assessment: 03:05 General: Appears in no apparent distress. uncomfortable, Behavior is calm, cooperative, jw7 appropriate for age. Pain: Complains of pain in right upper quadrant Pain radiates to back Pain currently is 8 out of 10 on a pain scale. Quality of pain is described as burning, Pain began 2 hours ago. Is continuous. Neuro: Level of Consciousness is awake, alert, obeys commands, Oriented to person, place, time, situation, Appropriate for age. Cardiovascular: Heart tones S1 S2 present Capillary refill < 3 seconds Clubbing of nail beds is absent JVD is absent Patient's skin is warm and dry. Respiratory: Airway is patent Trachea midline Respiratory effort is even, unlabored, Respiratory pattern is regular, symmetrical, Breath sounds are clear bilaterally. GI: Abdomen is round non-distended, Bowel sounds present X 4 quads. Abd is soft X 4 quads Abdomen is tender to palpation in right upper quadrant. : No deficits noted. No signs and/or symptoms were reported regarding the genitourinary system. EENT: No deficits noted. No signs and/or symptoms were reported regarding the EENT system. Derm: Skin is intact, is healthy with good turgor, Skin is dry, Skin is normal, Skin temperature is warm. Musculoskeletal: Circulation, motion, and sensation intact. Range of motion: intact in all extremities. 04:00 Reassessment: Patient appears in no apparent distress at this time. No changes from jw7 previously documented assessment. Patient and/or family updated on plan of care and expected duration. Pain level reassessed. Patient is alert, oriented x 3, equal unlabored respirations, skin warm/dry/pink. 05:00 Reassessment: Patient appears in no apparent distress at this time. Patient and/or jw7 family updated on plan of care and expected duration. Pain level reassessed. Patient is alert, oriented x 3, equal unlabored respirations, skin warm/dry/pink. Patient states feeling better. Patient states symptoms have improved. 07:24 Reassessment: Patient appears in no apparent distress at this time. Patient and/or jb4 family updated on plan of care and expected duration. Pain level reassessed. Patient is alert, oriented x 3, equal unlabored respirations, skin warm/dry/pink. Vital Signs: 02:57 BP 148 / 82; Pulse 91; Resp 18; Temp 98.4; Pulse Ox 100% on R/A; Weight 115.94 kg; cm10 Height 5 ft. 3 in. ; Pain 8/10; 04:26 BP 140 / 63; Pulse 78; Resp 17 S; Pulse Ox 96% on R/A; jw7 05:25 BP 145 / 75; Pulse 81; Resp 17 S; Pulse Ox 96% on R/A; jw7 02:57 Body Mass Index 45.28 (115.94 kg, 160.02 cm) cm10 02:57 Pain Scale: Adult cm10 Rach Coma Score: 06:27 Eye Response: spontaneous(4). Motor Response: obeys commands(6). Verbal Response: sp4 oriented(5). Total: 15. ED Course: 02:22 Patient arrived in ED. gm2 02:27 Chris Pinto MD is Attending Physician. sp4 02:59 Triage completed. cm10 03:00 Arm band placed on Patient placed in an exam room, on a stretcher. cm10 03:05 Patient has correct armband on for positive identification. Bed in low position. Call jw7 light in reach. Provided Education on: Use of Call Light. 03:47 No provider procedures requiring assistance completed. jw7 03:53 US Abdomen Limited In Process Unspecified. EDMS 04:11 Initial lab(s) drawn, by me, sent to lab. Inserted saline lock: 20 gauge in right jw7 antecubital area, using aseptic technique. Blood collected. 05:01 CT Abd/Pelvis - IV Contrast Only In Process Unspecified. EDMS 06:22 Denny Strauss MD is Referral Physician. sp4 07:24 IV discontinued, intact, bleeding controlled, No redness/swelling at site. Pressure jb4 dressing applied. Administered Medications: 03:45 Drug: NS 0.9% IV 1000 ml IV at 1 bolus Per protocol; 1000 mL bolus Route: IV; Rate: 1 jw7 bolus; Site: right antecubital; 03:45 Drug: morphine IVP or IV 4 mg IVP once over 4 mins Route: IVP; Infused Over: 4 mins; jw7 Site: right antecubital; 03:45 Drug: Ketorolac IVP 30 mg IVP once Route: IVP; Site: right antecubital; jw7 03:45 Drug: Ondansetron IVP 4 mg IVP once; over 2 minutes Route: IVP; Site: right antecubital;jw7 03:45 Drug: metoCLOPramide IVP 10 mg IVP once; over 1 to 2 minutes Route: IVP; Site: right jw7 antecubital; 03:50 Drug: Dicyclomine IM 20 mg IM once Route: IM; Site: right deltoid; jw7 07:20 Drug: Promethazine PO 25 mg PO once Route: PO; jb4 07:21 Drug: HYDROcodone-acetaminophen PO 5 mg-325 mg 2 tabs PO once Route: PO; jb4 Medication: 03:47 VIS not applicable for this client. jw7 Outcome: 06:24 Discharge ordered by . sp4 07:24 Discharged to home ambulatory, with family, jb4 07:24 Condition: stable 07:24 Discharge instructions given to patient, Instructed on discharge instructions, follow up and referral plans. medication usage, Demonstrated understanding of instructions, follow-up care, medications, Prescriptions given X 4, 07:24 Patient left the ED. jb4 Signatures: Dispatcher [employer] EDMS Adam Cortes RN RN jb4 Cherie Wylie RN RN jw7 Chris Pinto MD MD sp4 Kanwal Parsons RN RN cm10 Jesica Benz 2 Corrections: (The following items were deleted from the chart) 05:25 04:00 Reassessment: Patient appears in no apparent distress at this time. No changes jw7 from previously documented assessment. Patient and/or family updated on plan of care and expected duration. Pain level reassessed. Patient is alert, oriented x 3, equal unlabored respirations, skin warm/dry/pink. jw7
--- NOTE | 2023-11-21 06:25 | EDPHYS ---
Physician Documentation [facility] Name: Kori Ludwig Age: 28 yrs Sex: Female : 1995 Arrival Date: 11/21/2023 Time: 02:18 Bed 7 Private MD: ED Physician Chris Pinto HPI: 11/20 02:27 This 28 yrs old Female presents to ER via Unassigned with complaints of sp4 Abdominal Pain, Back Pain. 06:27 28-year-old female, presents with acute right upper quadrant abdominal pain with sp4 radiation into the back.. Historical: - Allergies: 02:59 No Known Allergies; cm10 - Home Meds: 02:59 None [Active]; cm10 - PMHx: 02:59 Kidney stones; cm10 - PSHx: 02:59 None; cm10 - Immunization history:: Adult Immunizations up to date. - Infectious Disease History:: Denies. - Social history:: Smoking status: Patient denies any tobacco usage or history of. Patient/guardian denies using alcohol, street drugs. - Family history:: not pertinent. ROS: 06:27 Constitutional: Positive right upper quadrant abdominal pain , positive nausea, sp4 positive back pain 06:27 All other systems are negative, Exam: 06:27 Constitutional: This is a well developed, well nourished patient who is awake, alert, sp4 and in no acute distress. Head/Face: Normocephalic, atraumatic. Eyes: Pupils equal round and reactive to light, extra-ocular motions intact. Lids and lashes normal. Conjunctiva and sclera are not injected. Cornea within normal limits. Periorbital areas with no swelling, redness, or edema. ENT: Nares patent. No nasal discharge, no septal abnormalities noted. Tympanic membranes are normal and external auditory canals are clear. Oropharynx with no redness, swelling, or masses, exudates, or evidence of obstruction, uvula midline. Mucous membranes moist. Neck: Trachea midline, no thyromegaly or masses palpated, and no cervical lymphadenopathy. Supple, full range of motion without nuchal rigidity, or vertebral point tenderness. Chest/axilla: Normal chest wall appearance and motion. Nontender with no deformity. No lesions are appreciated. Cardiovascular: Regular rate and rhythm with a normal S1 and S2. No gallops, murmurs, or rubs. Normal PMI, no JVD. No pulse deficits. Respiratory: Lungs have equal breath sounds bilaterally, clear to auscultation and percussion. No rales, rhonchi or wheezes noted. No increased work of breathing, no retractions or nasal flaring. Abdomen/GI: Soft, with normal bowel sounds. No distension or tympany. No guarding or rebound. No evidence of tenderness throughout. Back: No spinal tenderness. No costovertebral tenderness. Skin: Warm, dry with normal turgor. Normal color with no rashes, no lesions, and no evidence of cellulitis. MS/ Extremity: Pulses equal, no cyanosis. Neurovascular intact. Full, normal range of motion. Neuro: Awake and alert, GCS 15, oriented to person, place, time, and situation. Cranial nerves II-XII grossly intact. Motor strength 5/5 in all extremities. Sensory grossly intact. Psych: Awake, alert, with orientation to person, place and time. Behavior, mood, and affect are within normal limits Vital Signs: 02:57 BP 148 / 82; Pulse 91; Resp 18; Temp 98.4; Pulse Ox 100% on R/A; Weight 115.94 kg; cm10 Height 5 ft. 3 in. ; Pain 8/10; 04:26 BP 140 / 63; Pulse 78; Resp 17 S; Pulse Ox 96% on R/A; jw7 05:25 BP 145 / 75; Pulse 81; Resp 17 S; Pulse Ox 96% on R/A; jw7 02:57 Body Mass Index 45.28 (115.94 kg, 160.02 cm) cm10 02:57 Pain Scale: Adult cm10 Hammond Coma Score: 06:27 Eye Response: spontaneous(4). Motor Response: obeys commands(6). Verbal Response: sp4 oriented(5). Total: 15. MDM: 02:28 Patient medically screened. sp4 06:13 ED course: EXAM DESCRIPTION: Abdomen Exam Limited RadLex: US ABDOMEN LIMITED CLINICAL sp4 HISTORY: 28 years Female; ABD PAIN TECHNIQUE: Limited abdominal ultrasound was performed. COMPARISON: None. FINDINGS: Gallstone in the gallbladder neck measuring 4 mm. No pericholecystic fluid. Negative sonographic Salas sign. Gallbladder wall measures 4 mm. Common bile duct measures up to 4 mm. IMPRESSION: Cholelithiasis without sonographic evidence of acute cholecystitis. . ED course: EXAM DESCRIPTION: Abdomen Pelvis W Contrast RadLex: CTABDOMEN PELVIS WITH IV CONTRAST CLINICAL HISTORY: 28 years Female; ABD PAIN; IV ONLYBed Name: 7 TECHNIQUE: CT of the abdomen and pelvis [with] intravenous contrast. All CT scans at this facility use dose modulation, iterative reconstruction, and/or weight based dosing when appropriate to reduce radiation dose to as low as reasonably achievable. COMPARISON: CT abdomen pelvis 02/22/2021. Ultrasound abdomen 11/21/2023 FINDINGS: Lower thorax: Lung bases are clear Abdomen: Stomach:Within normal limits Liver:No focal lesions. Enlarged. No intrahepatic ductal distention. Gallbladder:Mildly distended. Pancreas:Within normal limits Spleen:Within normal limits Right kidney:No hydronephrosis. No focal lesion. Left kidney:No hydronephrosis. 2 mm renal stone. Adrenal glands:Within normal limits Vascular structures:Within normal limits Nodes:No lymphadenopathy by size criteria Pelvis: Small bowel:No significant distention. Appendix:Within normal limits Colon:No distention or acute pericolonic edema. Peritoneum: No free intraperitoneal fluid or air. Bones: No acute bone findings. Bladder: Under distended, limiting evaluation. Reproductive organs: No acute findings. Simple appearing left ovarian cyst measuring up to 2.9 cm. IMPRESSION: 1. No acute abdominopelvic findings. 2. Left-sided nephrolithiasis. No hydronephrosis. 3. Simple appearing left ovarian cyst measuring up to 2.9 cm. No follow-up imaging is recommended. 4. Hepatomegaly. Electronically signed by: Edith Lacey MD 11/21/2023 05:29 AM. 06:20 Differential diagnosis: Obesity Pyelonephritis Scoliosis. Data reviewed: sp4 vital signs, nurses notes, old medical records, lab test result(s), radiologic studies, CT scan, ultrasound. Consideration of Admission/Observation Escalation of care including admission/observation considered. ED course: Patient states she is feeling improved . Patient was advised to practice clear liquid diet for the next 24 hours. After that diabetic nonfat diet. Also follow-up with general surgeon for gallbladder assessment. Additionally follow-up with primary MD for diabetes management. . 11/20 02:28 Order name: CBC with Diff; Complete Time: 06:12 sp4 11/20 02:28 Order name: CMP; Complete Time: 06:12 sp4 11/20 02:28 Order name: Lipase; Complete Time: 06:12 sp4 11/20 02:28 Order name: Test, Urine; Complete Time: 06:12 sp4 11/20 02:28 Order name: Urinalysis w/ reflexes; Complete Time: 06:12 sp4 11/20 03:14 Order name: US Abdomen Limited sp4 11/20 03:15 Order name: CT Abd/Pelvis - IV Contrast Only sp4 11/20 02:28 Order name: IV Saline Lock; Complete Time: 04:28 sp4 11/20 02:28 Order name: Labs collected and sent; Complete Time: 04:28 sp4 Administered Medications: 03:45 Drug: NS 0.9% IV 1000 ml IV at 1 bolus Per protocol; 1000 mL bolus Route: IV; Rate: 1 jw7 bolus; Site: right antecubital; 03:45 Drug: morphine IVP or IV 4 mg IVP once over 4 mins Route: IVP; Infused Over: 4 mins; jw7 Site: right antecubital; 03:45 Drug: Ketorolac IVP 30 mg IVP once Route: IVP; Site: right antecubital; jw7 03:45 Drug: Ondansetron IVP 4 mg IVP once; over 2 minutes Route: IVP; Site: right antecubital;jw7 03:45 Drug: metoCLOPramide IVP 10 mg IVP once; over 1 to 2 minutes Route: IVP; Site: right jw7 antecubital; 03:50 Drug: Dicyclomine IM 20 mg IM once Route: IM; Site: right deltoid; jw7 07:20 Drug: Promethazine PO 25 mg PO once Route: PO; jb4 07:21 Drug: HYDROcodone-acetaminophen PO 5 mg-325 mg 2 tabs PO once Route: PO; jb4 Disposition Summary: 11/21/23 06:24 Discharge Ordered Notes: Location: Home sp4 Problem: new sp4 Symptoms: have improved sp4 Condition: Stable sp4 Diagnosis - Type 2 diabetes mellitus with hyperglycemia sp4 - Cholelithiasis without cholecystitis, hepatomegaly, left ovarian cyst, history of sp4 prediabetes, hyperglycemia, type 2 diabetes Followup: sp4 - With: Denny Strauss MD - When: 7 - 10 days - Reason: Recheck today's complaints Discharge Instructions: - Discharge Summary Sheet sp4 - Cholelithiasis, [id number] sp4 Forms: - Patient Portal Instructions sp4 Prescriptions: - Ibuprofen 800 mg Oral Tablet - take 1 tablet ORAL route every 8 hours As needed take with food; 30 tablet; sp4 Refills: 0, Product Selection Permitted - Metformin 500 mg Oral Tablet, Extended Release 24 hr - take 1 tablet ORAL route every 12 hours with evening meal; 60 tablet; Refills: sp4 0, Product Selection Permitted - Tramadol 50 mg Oral tablet - take 1 tablet ORAL route every 8 hours as needed; 20 tablet; Refills: 0, sp4 Product Selection Permitted - ondansetron 8 mg Oral Tablet,disintegrating - take 1 tablet ORAL route every 8 hours PRN nausea; 30 tablet; Refills: 0, sp4 Product Selection Permitted Signatures: Dispatcher [employer] EDMS Adam Cortes, RN RN jb4 Cherie Wylie RN RN jw7 Chris Pinto MD MD sp4 Kanwal Parsons RN RN cm10 Corrections: (The following items were deleted from the chart) 02: 02:28 CBC+H.LAB.BRZ ordered. EDMS EDMS 02: 02:28 COMPREHENSIVE METABOLIC PANEL+C.LAB.BRZ ordered. EDMS EDMS 02: 02:28 LIPASE+C.LAB.BRZ ordered. EDMS EDMS 02: 02:28 Test, Urine+UC.LAB.BRZ ordered. EDMS EDMS 02: 02:28 Urinalysis+U.LAB.BRZ ordered. EDMS EDMS
[2023-11-21] MEDS ORDERED: PROMETHAZINE 25 MG TABLET ONE (07:18)
[2023-11-21] MEDS ORDERED: HYDROCODONE/APAP 5/325 MG TAB ONE (07:19)
[2023-11-21 07:28] VITALS: TEMP 98.4
[2023-11-21 08:05] VITALS: BP 145/75; O2SAT 96
--- NOTE | 2023-11-21 12:51 | RAD REPORT ---
EXAM DESCRIPTION: Abdomen Pelvis W Contrast RadLex: CT ABDOMEN PELVIS WITH IV CONTRAST CLINICAL HISTORY: 28 years Female; ABD PAIN; IV ONLY Bed Name: 7 TECHNIQUE: CT of the abdomen and pelvis with intravenous contrast. All CT scans at this facility use dose modulation, iterative reconstruction, and/or weight based dosi ng when appropriate to reduce radiation dose to as low as reasonably achievable. COMPARISON: CT abdomen pelvis 02/22/2021. Ultrasound abdomen 11/21/2023 FINDINGS: Lower thorax: Lung bases are clear Abdomen: Stomach: Within normal limits Liver: No focal lesions. Enlarged. No intrahepatic ductal distention. Gallbladder: Mildly distended. Pancreas: Within normal limits Spleen: Within normal limits Right kidney: No hydronephrosis. No focal lesion. Left kidney: No hydronephrosis. 2 mm renal stone. Adrenal glands: Within normal limits Vascular structures: Within normal limits Nodes: No lymphadenopathy by size criteria Pelvis: Small bowel: No significant distention. Appendix: Within normal limits Colon: No distention or acute pericolonic edema. Peritoneum: No free intraperitoneal fluid or air. Bones: No acute bone findings. Bladder: Under distended, limiting evaluation. Reproductive organs: No acute findings. Simple appearing left ovarian cyst measuring up to 2.9 cm. IMPRESSION: 1. No acute abdominopelvic findings. 2. Left-sided nephrolithiasis. No hydronephrosis. 3. Simple appearing left ovarian cyst measuring up to 2.9 cm. No follow-up imaging is recommended. 4. Hepatomegaly. Electronically signed by: Edith Lacey MD 11/21/2023 05:29 AM CDT Due to temporary technical issues with the PACS/Fluency reporting system, reports are being signed by the in house radiologist without review as a courtesy to ensure prompt reporting. The interpreting r adiologist is fully responsible for the content of the report.
--- NOTE | 2023-11-21 12:52 | RAD REPORT ---
EXAM DESCRIPTION: Abdomen Exam Limited RadLex: US ABDOMEN LIMITED CLINICAL HISTORY: 28 years Female; ABD PAIN TECHNIQUE: Limited abdominal ultrasound was performed. COMPARISON: None. FINDINGS: Gallstone in the gallbladder neck measuring 4 mm. No pericholecystic fluid. Negative sonographic Salas sign. Gallbladder wall measures 4 mm. Common bile duct measures up to 4 mm. IMPRESSION: Cholelithiasis without sonographic evidence of acute cholecystitis. Electronically signed by: Edith Lacey MD 11/21/2023 04:05 AM CDT Due to temporary technical issues with the PACS/Fluency reporting system, reports are being signed by the in house radiologist without review as a courtesy to ensure prompt reporting. The interpreting r adiologist is fully responsible for the content of the report.
== END 2023-11-21 07:24 | disposition home or self-care (01) ==
LOC: ER 02:18
DX: K80.20 Calculus of gallbladder without cholecystitis without obstruction (principal); E11.65 Type 2 diabetes mellitus with hyperglycemia; R16.0 Hepatomegaly, not elsewhere classified; N83.202 Unspecified ovarian cyst, left side; Z87.442 Personal history of urinary calculi
CPT/HCPCS: 85025; 81001; 36415; 81025; 83690; 80053; 74177; 76705; Q9967; Q0169; J2765; J0500; J2405; J7030; 96372; 96374; 96375; 99284

== ENCOUNTER 2024-10-09 04:35 | Emergency (ER) | payer OTHER ==
--- OUTSIDE RECORDS SUMMARY | 2024-10-09 04:38 | XMS REPORT | Continuity of Care Document ---
Author Name Unknown Address [address] [facility] [address] [place] [address] [facility] Address [address] [facility] [address] [place] [address] Care Team Providers Care Baby Counselor Name Role Phone Unavailable Unavailable Unavailable Encounters Start Date/Time End Date/Time Encounter Type Admission Type Attending [facility] Facility Care Department Encounter ID Source 2024-10-04 08:09:06 2024-10-04 08:09:06 Outpatient [facility] SFA [id number] Trenton Crews 2024-09-07 13:13:43 2024-09-07 13:13:43 Outpatient SFA SFA [id number] Trenton Crews 2024-09-06 16:56:18 2024-09-06 16:56:18 Outpatient SFA SFA [id number] Trenton Crews 2024-08-08 08:05:19 2024-08-08 08:05:19 Outpatient SFA SFA [id number] Trenton Crews 2024-06-25 08:06:23 2024-06-25 08:06:23 Outpatient SFA SFA [id number] Trenton Crews 2024-05-04 07:24:00 2024-05-04 07:24:00 Outpatient SFA SFA [id number] Trenton Crews 2024-03-27 07:41:03 2024-03-27 07:41:03 Outpatient SFA SFA [id number] Trenton Crews 2023-11-29 15:39:24 2023-11-29 15:39:24 Outpatient SFA SFA [id number] Trenton Crews 2023-05-27 08:46:32 2023-05-27 08:46:32 Outpatient [facility] [id number] Trenton Crews 2023-03-21 14:05:48 2023-03-21 14:05:48 Outpatient [facility] [id number] Trenton Crews 2023-02-09 07:22:54 2023-02-09 07:22:54 Outpatient [facility] [id number] Trenton Crews 2023-02-01 11:36:27 2023-02-01 11:36:27 Outpatient [facility] [id number] Trenton Crews 2022-11-13 08:49:51 2022-11-13 08:49:51 Outpatient [facility] [id number] Trenton Crews 2022-11-11 08:17:45 2022-11-11 08:17:45 Outpatient [facility] [id number] Trenton Crews Results Test Description Test Time Test Comments Results Result Co mments Source RUBEOLA AB, [id number] 13:16:06* Test Item Value Reference Range Interpretation Comme estelle RUBEOLA AB, IgG (test code = 18487) 45.3 AU/ML SEE BELOW INTERPRETATION U NITS RANGE ----- ----- NEGATIVE AU/ML <13.5 EQUIVOCAL AU/ML 13.5-16.4 NOTE: CONSIDER RETESTING IN A CLINICALLY SUITABLE PERIOD OF TIME, NO SOONER THAN 1-2 WEEKS. POSITIVE AU/ML >=16.5 VARICELLA ZOSTER [id number] 13:16:06* Test Item Value Reference Range Interpretation Comme [facility] VARICELLA ZOSTER IgG (test code = 92066) 92 INDEX SEE BELOW L INTERPRETATI ON [...] . . . . . INDEX >=165 RUBELLA ANTIBODY [id number] 04:26:12* Test Item Value Reference Range Interpretation Comme [facility] RUBELLA ANTIBODY SCREEN (test code = 4600) 320 IU/ML SEE BELOW RUBELLA IgG INTERP (test code = 66558) REACTIVE REACTIVE INTERPRETATI ON UNITS RANGE NON-REACTIVE/NON-IMMUNE IU/ML <10 REACTIVE/IMMUNE IU/ML >=10 HEPATITIS B SURFACE [id number] 04:26:12* Test Item Value Reference Range Interpretation Comme nts HEPATITIS B SURFACE AB (test code = 2737) NON-REACTIVE NON-REACTIVE HEPATITIS A TOTAL AB REFLEX TO [id number] 04:26:12* Test Item Value Reference Range Interpretation Comme nts HEPATITIS A TOTAL AB (test c ode = 2725) REACTIVE NON-REACTIVE A HEPATITIS A [id number] 04:26:12* Test Item Value Reference Range Interpretation Comme nts HEPATITIS A IgM (test code = 2728) NON-REACTIVE NON-REACTIVE [facility] has i mportant pathology staff changes effective 09/22/2022. New pathology staff will provide uninterrupted, excellent patient care and clinical consultation. See URL: [email or web address] UNLESS OTHERWISE INDICATED, ALL TESTING PERFORMED AT [facility] [address] [place] [id number] SENIOR MARKET RESEARCH ANALYST: JOYCE THOMAS M.D. CLIA NUMBER [id number] [facility] [place]. [id number]
[2024-10-09 05:19] LABS: Absolute Eosinophils 0.3 K/uL (0-0.5); Absolute Lymphocytes (CBC) 2.8 K/uL (0.7-4.9); Absolute Monocytes 0.7 K/uL (0.1-1.3); Absolute Neutrophil 5.9 K/uL (1.8-8.0); Basophils % 0.3 % (0-1.3); Eosinophils % 2.8 % (0-4.4); Hematocrit 39.6 % (36.0-45.0); Hemoglobin 13.9 g/dL (12.0-15.0); Lymphocytes % 29.2 % (15.3-44.8); MCH 30.6 pg (27.0-35.0); MCHC 35.1 g/dL (32.0-36.0); MPV 8.3 fL (7.6-11.3); Monocytes % 7.3 % (3.3-12.3); Neutrophils % 60.4 % (41.7-73.7); Nucleated Red Blood Cells % 0.1 % (0-0); Platelets 462 thou/uL (152-406); RBC Red Blood Cell Count 4.55 M/uL (3.86-4.86); Red Cell Distribution Width 12.5 % (12.1-15.2)
[2024-10-09 05:29] LABS: Albumin 3.9 g/dL (3.4-5.0); Albumin/Globulin Ratio 0.9 (1.1-1.8); Anion Gap 10.9 mEq/L (5.0-15.0); Bilirubin Total 0.5 mg/dL (0.2-1.0); Globulin 4.4 g/dL (2.3-3.5); Potassium 3.9 mEq/L (3.5-5.1); Protein, Total 8.3 g/dL (6.4-8.2)
[2024-10-09 05:31] LABS: Calcium Oxalate Crystals- Ur Moderate /HPF (None Seen); Urine Bacteria <20 /HPF (<20); Urine Bilirubin NEGATIVE (Negative); Urine Blood 1+ (Negative); Urine Clarity Extremely Turbid (Clear); Urine Color Yellow (Yellow); Urine Culture Reflex Order REFLEXED; Urine Glucose NEGATIVE (Negative); Urine Ketones NEGATIVE (Negative); Urine Microscopic Reflex YN ORDER UMIC; Urine Mucus Slight /HPF (None Seen); Urine Nitrite NEGATIVE (Negative); Urine Protein 1+ (Negative); Urine RBC <5 /HPF (None Seen); Urine Urobilinogen Normal (Normal); Urine pH 5.5 (5.0-7.0)
[2024-10-09] MEDS ORDERED: KETOROLAC 30 MG/ML INJ ONE (05:39)
[2024-10-09] MEDS ORDERED: ONDANSETRON 4 MG/2 ML VIAL ONE (05:39)
[2024-10-09] MEDS ORDERED: NA CHLORIDE 0.9% 1,000 ML ONE (05:40)
[2024-10-09] MEDS ORDERED: FAMOTIDINE 20 MG/2 ML VIAL IV ONE (05:40)
--- NOTE | 2024-10-09 07:15 | RAD REPORT ---
EXAMINATION: CT ABDOMEN AND PELVIS WITH CONTRAST CLINICAL INDICATION: Abdominal pain TECHNIQUE: CT abdomen and pelvis was performed, after the administration of 100 cc Isovue-300.. Sagit cali and coronal reconstructions were obtained. One or more of the following dose reduction techniques were used: Automated exposure control, adjustment of the mA and kV according to patient si ze, and iterative reconstruction. Unless otherwise specified, incidental findings do not require dedicated imaging follow-up. [id number]. Oral contrast was not given which limits evaluation of bowel and appendix. COMPARISON: 2023 FINDINGS: Liver, spleen, pancreas, adrenals and right kidney appear unremarkable 3 mm calculus left kidney. No hydronephrosis. Fluid is present throughout nondilated small and large bowel. Fluid is present within a borderline di lated appendix. 2.3 cm left ovarian cyst without significant free fluid. No follow-up recommended. No evidence of div erticulitis. : IMPRESSION: 3 mm nonobstructing left renal calculus. 2.3 cm left ovarian cyst without significant free fluid Fluid within nondilated large and small bowel may indicate an enteritis. Borderline dilatation of the appendix probably not significant. An early appendicitis can also have t his appearance and should be correlated clinically.
--- NOTE | 2024-10-09 07:27 | EDPHYS ---
Physician Documentation [facility] Name: Kori Ludwig Age: 29 yrs Sex: Female : 1995 Arrival Date: 10/09/2024 Time: 04:35 Bed 15 Private MD: ED Physician Patrick Trujillo HPI: 10/09 04:54 This 29 yrs old Female presents to ER via Ambulatory with complaints of ec2 Nausea/Vomiting/Diarrhea, Rectal Bleeding. 04:54 Patient arrives today for evaluation of abdominal pain along with rectal bleeding. ec2 Patient reports that she has been having rectal bleeding for the past 2 days. Patient reports that she started having some upper abdominal pain this evening. Patient reports no urinary complaints. Reports no medical problems, history of hemorrhoids.. 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 - Infectious Disease History:: Denies. - Social history:: Smoking status: Patient denies any tobacco usage or history of. Patient uses alcohol, occasionally. Patient/guardian denies using street drugs. ROS: 04:55 Constitutional: as per hpi ec2 Exam: 04:55 Constitutional: GEN: NAD Head: atraumatic Eyes: EOMI Ears: External ears are ec2 normal. CV: Tachycardia noted LUNGS: no respiratory distress ABD: non-distended, soft, nontender, not guarding or rigid SKIN: no evidence of rashes MSK: no evidence of trauma Vital Signs: 04:47 BP 144 / 75; Pulse 118; Resp 16 S; Temp 98.2(O); Pulse Ox 98% on R/A; Weight 112.49 kg lg3 (R); Height 5 ft. 3 in. ; Pain 7/10; 07:21 BP 119 / 74; Pulse 83; Resp 18 S; Pulse Ox 97% on R/A; kc6 04:47 Body Mass Index 43.93 (112.49 kg, 160.02 cm) lg3 04:47 Pain Scale: Adult lg3 MDM: 04:46 Medical Screening Exam initiated ec2 04:55 Data reviewed: vital signs, nurses notes. ED course: Patient arrives today for ec2 abdominal pain and rectal bleeding. Examination yields slight tachycardia otherwise reassuring abdominal examination. Will obtain lab work, urine studies, treat pt s/s. 05:40 ED course: CBC reassuring, metabolic profile with appropriate electrolytes, renal ec2 function as well as liver profile. Urine is remarkable for leuk esterase and WBCs. Patient does have calcium oxalate noted. Will obtain CT imaging to further evaluate for possible stone.. 07:26 ED course: Lab work shows reassuring blood counts, no leukocytosis, metabolic profile ec2 with appropriate electrolytes and renal function, urine is noninfectious appearing. Urine is non. CT abdomen pelvis shows enteritis along with ovarian cysts, borderline dilatation of the appendix. I reassessed the patient does have some upper abdominal TTP. You shared decision making with the patient regarding observation/hospitalization for possible early appendicitis and ultimately we decided to return home. Will prescribe the patient Bentyl as well as Zofran. 10/09 04:47 Order name: CBC with Diff; Complete Time: 05:40 ec2 10/09 04:47 Order name: CMP; Complete Time: 05:40 ec2 10/09 04:47 Order name: Lipase; Complete Time: 05:40 ec2 10/09 04:47 Order name: Test, Urine; Complete Time: 05:40 ec2 10/09 04:47 Order name: Urinalysis w/ reflexes; Complete Time: 05:40 ec2 10/09 05:35 Order name: Urine Culture [facility] 10/09 05:40 Order name: CT Abd/Pelvis - IV Contrast Only; Complete Time: 07:16 ec2 10/09 04:47 Order name: IV Saline Lock; Complete Time: 05:56 ec2 10/09 04:47 Order name: Labs collected and sent; Complete Time: 05:56 ec2 Administered Medications: 05:25 Drug: NS 0.9% IV 1000 ml IV at 1 bolus Per protocol; to be given as a bolus over 60 rg5 minutes Route: IV; Rate: 1 bolus; Site: right antecubital; 07:23 Follow up: Response: No adverse reaction; IV Status: Completed infusion; IV Intake: kc6 1000ml 05:30 Drug: Ondansetron IVP 4 mg IVP once; over 2 minutes Route: IVP; Site: right antecubital;rg5 07:12 Follow up: Response: No adverse reaction rg5 05:35 Drug: Ketorolac IVP 15 mg IVP once Route: IVP; Site: right antecubital; rg5 07:12 Follow up: Response: No adverse reaction; Pain is decreased rg5 05:40 Drug: Famotidine IVP 20 mg IVP once; dilute with 10 mL 0.9% NaCl; give over 2 minutes rg5 Route: IVP; Site: right antecubital; 07:12 Follow up: Response: No adverse reaction rg5 Disposition Summary: 10/09/24 07:27 Discharge Ordered Condition: Stable ec2 Diagnosis - Other viral enteritis ec2 Followup: ec2 - With: Private Physician - When: - Reason: Re-evaluation by your physician Discharge Instructions: - Discharge Summary Sheet ec2 - Viral Gastroenteritis, Adult, [id number] ec2 Forms: - Work release form kc6 - Medication Reconciliation Form ec2 - Antibiotic Education ec2 - Prescription Opioid Use ec2 - Patient Portal Instructions ec2 - Leadership Thank You Letter ec2 Prescriptions: - Zofran 4 mg Oral Tablet - take 1 tablet ORAL route every 12 hours As needed; 20 tablet; Refills: 0, ec2 Product Selection Permitted - dicyclomine 10 mg Oral capsule - take 1 capsule ORAL route 3 times per day; 30 capsule; Refills: 0, Product ec2 Selection Permitted Signatures: Dispatcher [employer] Corie Iniguez RN RN lg3 Patrick Trujillo MD MD ec2 Israel Edwards RN RN rg5 Vicky Ackerman RN kc6
--- NOTE | 2024-10-09 07:27 | ER ---
Nurse's Notes [facility] Name: Kori Ludwig Age: 29 yrs Sex: Female : 1995 Arrival Date: 10/09/2024 Time: 04:35 Bed 15 Private MD: Diagnosis: Other viral enteritis Presentation: 10/09 04:47 Chief complaint: Patient states: nausea/vomiting/diarrhea with bloody stool X2 days lg3 with no pain associated. new onset upper abdominal pain 7/10 X3 hr. Coronavirus screen: Client denies travel out of the [place] in the last 14 days. At this time, the client does not indicate any symptoms associated with coronavirus-19. Ebola Screen: No symptoms or risks identified at this time. Initial Sepsis Screen: Does the patient meet any 2 criteria? No. Patient's initial sepsis screen is negative. Does the patient have a suspected source of infection? No. Patient's initial sepsis screen is negative. Risk Assessment: Do you want to hurt yourself or someone else? Patient reports no desire to harm self or others. Onset of symptoms was October 07, 2024. 04:47 Method Of Arrival: Ambulatory lg3 04:47 Acuity: TRISTON 3 lg3 Triage Assessment: 04:49 General: Appears in no apparent distress. uncomfortable, Behavior is calm, cooperative. lg3 Pain: Complains of pain in abdomen Pain does not radiate. Pain currently is 7 out of 10 on a pain scale. Pain began 3 hours ago. Also complains of nausea. EENT: No deficits noted. No signs and/or symptoms were reported regarding the EENT system. Neuro: No deficits noted. Buckley Agitation-Sedation Scale (RASS): 0 - Alert and Calm Level of Consciousness is awake, alert, obeys commands, Oriented to person, place, time, situation. Cardiovascular: No deficits noted. Denies chest pain, shortness of breath, Capillary refill < 3 seconds Clubbing of nail beds is absent JVD is absent Patient's skin is warm and dry. Respiratory: No deficits noted. Airway is patent Respiratory effort is even, unlabored, Respiratory pattern is regular, symmetrical. GI: Abdomen is round non-distended, obese, Reports upper abdominal pain, diarrhea, bloody stool, nausea, vomiting. : No signs and/or symptoms were reported regarding the genitourinary system. Derm: No deficits noted. No signs and/or symptoms reported regarding the dermatologic system. Skin is intact, is healthy with good turgor, Skin is dry, Skin is normal, Skin temperature is warm. Musculoskeletal: No deficits noted. No signs and/or symptoms reported regarding the musculoskeletal system. Circulation, motion, and sensation intact. Range of motion: intact in all extremities. 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 - Infectious Disease History:: Denies. - Social history:: Smoking status: Patient denies any tobacco usage or history of. Patient uses alcohol, occasionally. Patient/guardian denies using street drugs. Screenin:00 [facility] ED Fall Risk Assessment (Adult) History of falling in the last 3 months, rg5 including since admission No falls in past 3 months (0 pts) Confusion or Disorientation No (0 pts) Intoxicated or Sedated No (0 pts) Impaired Gait No (0 pts) Mobility Assist Device Used No (0 pt) Altered Elimination No (0 pt) Score/Fall Risk Level 0 - 2 = Low Risk Oriented to surroundings, Maintained a safe environment, Hourly rounding (assess needs \T\ fall precautionary measures) done. Abuse screen: Denies threats or abuse. Nutritional screening: No deficits noted. Tuberculosis screening: No symptoms or risk factors identified. Assessment: 05:00 General: Appears in no apparent distress. comfortable, Behavior is calm, cooperative. rg5 GI: Reports upper abdominal pain, diarrhea, rectal bleeding. GI: Abdomen is round Bowel sounds present in left lower quadrant Abd is soft and non tender. 07:21 General: Appears in no apparent distress. comfortable, well groomed, well developed, kc6 Behavior is calm, cooperative, appropriate for age. Pain: Complains of pain in epigastric area, right lower quadrant and left lower quadrant. Neuro: Level of Consciousness is awake, alert, obeys commands, Oriented to person, place, time, situation, Appropriate for age. Cardiovascular: Capillary refill < 3 seconds. Respiratory: Airway is patent Trachea midline Respiratory effort is even, unlabored, Respiratory pattern is regular, symmetrical. GI: Abdomen is round non-distended, Bowel sounds present X 4 quads. Reports lower abdominal pain, upper abdominal pain, diarrhea, rectal bleeding, nausea, vomiting. : No signs and/or symptoms were reported regarding the genitourinary system. EENT: No signs and/or symptoms were reported regarding the EENT system. Derm: No signs and/or symptoms reported regarding the dermatologic system. Skin is intact, is healthy with good turgor, Skin is pink, warm \T\ dry. Musculoskeletal: No signs and/or symptoms reported regarding the musculoskeletal system. Circulation, motion, and sensation intact. Range of motion: intact in all extremities. Vital Signs: 04:47 BP 144 / 75; Pulse 118; Resp 16 S; Temp 98.2(O); Pulse Ox 98% on R/A; Weight 112.49 kg lg3 (R); Height 5 ft. 3 in. ; Pain 7/10; 07:21 BP 119 / 74; Pulse 83; Resp 18 S; Pulse Ox 97% on R/A; kc6 04:47 Body Mass Index 43.93 (112.49 kg, 160.02 cm) lg3 04:47 Pain Scale: Adult lg3 ED Course: 04:39 Patient arrived in ED. jj6 04:40 Patrick Trujillo MD is Attending Physician. ec2 04:47 Israel Edwards RN is Primary Nurse. rg5 04:49 Triage completed. lg3 04:49 Arm band placed on right wrist. lg3 05:00 Patient has correct armband on for positive identification. Bed in low position. Call rg5 light in reach. Side rails up X 1. Door closed. Noise minimized. Warm blanket given. 05:00 No provider procedures requiring assistance completed. Inserted saline lock: 20 gauge rg5 in right antecubital area, using aseptic technique. Blood collected. Flushed with 10 mL NS. 07:00 Report received from KENNY Ramey. kc6 07:00 Pulse ox on. NIBP on. Door closed. Noise minimized. Lights dimmed. Warm blanket given. kc6 Pillow given. Verbal reassurance given. 07:01 CT Abd/Pelvis - IV Contrast Only In Process Unspecified. EDMS 07:36 Provided Education on: please return to the ER if symptoms do not improve or worsen. kc6 07:36 IV discontinued, intact, bleeding controlled, No redness/swelling at site. Pressure kc6 dressing applied. Administered Medications: 05:25 Drug: NS 0.9% IV 1000 ml IV at 1 bolus Per protocol; to be given as a bolus over 60 rg5 minutes Route: IV; Rate: 1 bolus; Site: right antecubital; 07:23 Follow up: Response: No adverse reaction; IV Status: Completed infusion; IV Intake: kc6 1000ml 05:30 Drug: Ondansetron IVP 4 mg IVP once; over 2 minutes Route: IVP; Site: right antecubital;rg5 07:12 Follow up: Response: No adverse reaction rg5 05:35 Drug: Ketorolac IVP 15 mg IVP once Route: IVP; Site: right antecubital; rg5 07:12 Follow up: Response: No adverse reaction; Pain is decreased rg5 05:40 Drug: Famotidine IVP 20 mg IVP once; dilute with 10 mL 0.9% NaCl; give over 2 minutes rg5 Route: IVP; Site: right antecubital; 07:12 Follow up: Response: No adverse reaction rg5 Medication: 05:00 VIS not applicable for this client. rg5 Intake: 07:23 IV: 1000ml; Total: 1000ml. kc6 Outcome: 07:27 Discharge ordered by . ec2 07:35 Discharged to home ambulatory, with family, kc6 07:35 Condition: good 07:35 Discharge instructions given to patient, family, Instructed on discharge instructions, follow up and referral plans. medication usage, Demonstrated understanding of instructions, follow-up care, medications, Prescriptions given X 2, 07:36 Patient left the ED. kc6 Signatures: Dispatcher [employer] Corie Iniguez RN RN [id number] Lisa [id number] Vicky Ackerman RN RN kc6 Patrick Trujillo MD MD ec2 Israel Edwards RN RN rg5
[2024-10-09 08:30] VITALS: TEMP 98.2
[2024-10-09 08:32] VITALS: BP 119/74; O2SAT 97
== END 2024-10-09 07:36 | disposition home or self-care (01) ==
LOC: ER 04:35
DX: A08.39 Other viral enteritis (principal); E11.9 Type 2 diabetes mellitus without complications
CPT/HCPCS: 96361; 87088; 85025; 81001; 87086; 36415; 81025; 83690; 80053; 74177; 96375; 96374; 99284; Q9967; J2405; J7030